=== PATIENT | female | born 1970 | race African-American/Black ===

== ENCOUNTER 2021-08-14 09:08 | Emergency (ER) | payer OTHER ==
[2021-08-14 11:14] LABS: #Eosinphils 0.2 10x3/uL (0.0-0.5); #Monocytes 0.3 10x3/uL (0.0-1.1); #Neutrophils 4.2 10x3/uL (1.5-8.4); %Basophils 0.4 % (0.0-2.0); %Eosinophils 2.2 % (0.0-6.0); %Lymphocytes 31.9 % (18.0-47.0); %Monocytes 4.1 % (0.0-10.0); %Neutrophils 61.1 % (40.0-75.0); Hemoglobin 13.7 g/dL (12.0-15.5); Mean Corpuscular HGB CONC 32.2 g/dL (32.0-36.0); Mean Corpuscular Hemoglobin 27.5 pg (27.0-33.0); Mean Corpuscular Volume 85.2 fl (81.6-98.3); Mean Platelet Volume 9.3 fl (7.4-10.4); Platelet Count 267 10x3/uL (150-450); RBC Distribution Width 13.1 % (11.5-14.5); Red Blood Cell (RBC) Count 4.99 10x6/uL (3.90-5.03); White Blood Cell (WBC) Count 6.8 10x3/uL (3.5-10.5)
[2021-08-14 11:41] LABS: ALT (SGPT) 14 U/L (8-55); AST (SGOT) 12 U/L (5-34); Albumin 4.3 g/dL (3.5-5.0); Alkaline Phosphatase 79 U/L (40-110); Anion Gap 12 mmol/L (10-20); BUN (Urea Nitrogen) 16 mg/dL (9.8-20.1); Bilirubin, Total 0.5 mg/dL (0.2-1.2); Calc. Creatinine Clearance 0 mL/min (70-130); Calcium 9.4 mg/dL (7.8-10.44); Carbon Dioxide 26 mmol/L (22-29); Chloride 106 mmol/L (98-107); Globulin 3.1 g/dL (2.4-3.5); Glucose 130 mg/dL (70-105); Protein, Total 7.4 g/dL (6.0-8.3); Sodium 140 mmol/L (136-145)
== END 2021-08-14 12:42 | disposition home or self-care (01) ==
LOC: CSHERS 09:08
DX: R55 Syncope and collapse (principal); I10 Essential (primary) hypertension
CPT/HCPCS: 36415; 71045; 80053; 84484; 85025; 93005

== ENCOUNTER 2022-05-22 18:54 | Emergency (ER) | payer OTHER | END 2022-05-22 21:08 | disposition home or self-care (01) | LOC: CSHERS 18:54 | DX: M25.562 Pain in left knee (principal); M25.561 Pain in right knee; G89.29 Other chronic pain; I10 Essential (primary) hypertension ==

== ENCOUNTER 2022-07-13 05:43 | Day surgery (SDC) | payer OTHER ==
[2022-07-11 15:04] VITALS: BMI 42.9
[2022-07-13] MEDS ORDERED: PROPOFOL 40 ML ONE (07:38)
[2022-07-13] MEDS ORDERED: Glycopyrrolate 0.2 MG/ML 5 ML SYRINGE ONE (07:44)
[2022-07-13] MEDS ORDERED: Midazolam HCl 2 mg/2 ml Vial ONE (07:45)
== END 2022-07-13 09:00 | disposition home or self-care (01) ==
LOC: CSHSDC 05:43
PROVIDERS: ATTEND Internal Medicine Gastroenterology
DX: D12.5 Benign neoplasm of sigmoid colon (principal); K64.9 Unspecified hemorrhoids; E78.5 Hyperlipidemia, unspecified; F31.9 Bipolar disorder, unspecified; I10 Essential (primary) hypertension; K21.9 Gastro-esophageal reflux disease without esophagitis; E66.9 Obesity, unspecified; Z68.41 Body mass index [BMI] 40.0-44.9, adult
CPT/HCPCS: 88305; A4215; J2250; J2704

== ENCOUNTER 2022-12-03 20:12 | Emergency (ER) | payer OTHER ==
[2022-12-03] MEDS ORDERED: Ketorolac Tromethamine 30 MG/ML VIAL ONE (22:42)
[2022-12-03] MEDS ORDERED: Cyclobenzaprine 10 MG TAB ONE ×2 (22:42→22:44)
== END 2022-12-03 23:01 | disposition home or self-care (01) ==
LOC: CSHERS 20:12
DX: S29.012A Strain of muscle and tendon of back wall of thorax, initial encounter (principal); I10 Essential (primary) hypertension; X50.1XXA Overexertion from prolonged static or awkward postures, initial encounter
CPT/HCPCS: 99283; J1885

== ENCOUNTER 2024-03-09 12:06 | Emergency (ER) | payer OTHER ==
[2024-03-09 13:13] LABS: #Basophils 0.02 10x3/uL (0.0-0.2); #Eosinophils 0.05 10x3/uL (0.0-0.5); #Monocytes 0.42 10x3/uL (0.0-1.1); #Neutrophils 5.67 10x3/uL (1.5-8.4); %Basophils 0.3 % (0.0-2.0); %Eosinophils 0.6 % (0.0-6.0); %Lymphocytes 22.8 % (18.0-47.0); %Monocytes 5.3 % (0.0-10.0); %Neutrophils 70.7 % (40.0-75.0); Hematocrit 44.7 % (34.9-44.5); Mean Corpuscular HGB CONC 33.6 g/dL (32.0-36.0); Mean Corpuscular Hemoglobin 27.6 pg (27.0-33.0); Mean Corpuscular Volume 82.3 fL (81.6-98.3); Mean Platelet Volume 10.6 fL (7.4-10.4); Platelet Count 326 10x3/uL (150-450); RBC Distribution Width 12.6 % (11.5-14.5); Red Blood Cell (RBC) Count 5.43 10x6/uL (3.90-5.03)
[2024-03-09 13:33] LABS: ALT (SGPT) 21 U/L (8-55); AST (SGOT) 10 U/L (5-34); Albumin 3.9 g/dL (3.5-5.0); Alkaline Phosphatase 129 U/L (40-110); Anion Gap 21 mmol/L (10-20); BUN (Urea Nitrogen) 33 mg/dL (9.8-20.1); Bilirubin, Total 0.8 mg/dL (0.2-1.2); Calc. Creatinine Clearance 0 mL/min (70-130); Calcium 10.1 mg/dL (7.8-10.44); Carbon Dioxide 24 mmol/L (22-29); Chloride 87 mmol/L (98-107); Estimated GFR 36; Globulin 4.1 g/dL (2.4-3.5); Potassium 5.2 mmol/L (3.5-5.1); Sodium 127 mmol/L (136-145)
[2024-03-09 13:46] LABS: Critical Call Chemistry ERS.MLU @1346; Glucose 800 mg/dL (70-105)
[2024-03-09] MEDS ORDERED: Insulin Regular, Human 100 UNIT/ML 10 ML VIAL ONE (14:05)
[2024-03-09 14:51] LABS: Bilirubin Neg (Negative); Blood, Urine Negative (Negative); Clarity Clear (Clear); Glucose, Urine (Dipstick) >=1000 mg/dL (Negative); Ketone, Urine 50 mg/dL (Negative); Leukocyte 25 (Negative); Nitrite Negative (Negative); Protein, Urine (Dipstick) Negative (Neg-Trace); Specific Gravity, Urine 1.005 (1.005-1.030); Urobilinogen Normal mg/dL (Less than 2); pH, Urine 6.5 (5.0-9.0)
[2024-03-09 15:05] LABS: Actual Bicarbonate (HCO3v) 25.1 mEq/L (22-28); Analyzer IN Cardio CS ER; Base Excess -0.5 mEq/L (-2 - +2); Calcium, Ionized (venous) 1.05 mmol/L (1.16-1.32); Chloride (VBG) 90 mmol/L (98-106); Critical Notified By: S. CREAMER, RRT; Hematocrit-VBG 48 % (36.0-47.0); Hemoglobin (Hb) 16.3 g/dL (11.7-16.0); Potassium (VBG) 4.59 mmol/L (3.70-5.30); Puncture Site Other Site; RapidComm Collect By cbn; Sodium 131 mmol/L (133-146); pH (venous) 7.369 (7.32-7.43)
[2024-03-09 15:11] LABS: CAUTI Indications for Culture Dysuria,urgency,freq; RBC/HPF None Seen HPF (0-3); Squamous Epithelial 0-3 HPF (0-3); WBC/HPF 0-3 HPF (0-3)
[2024-03-09 15:12] LABS: Bacteria/HPF None Seen HPF (None Seen); Urine Culture Reflex No No
== END 2024-03-09 17:35 | disposition home or self-care (01) ==
LOC: CSHERS 12:06
DX: R73.9 Hyperglycemia, unspecified (principal); E86.0 Dehydration; I10 Essential (primary) hypertension; Z79.899 Other long term (current) drug therapy; Z85.038 Personal history of other malignant neoplasm of large intestine; Z85.43 Personal history of malignant neoplasm of ovary
CPT/HCPCS: 36415; 70491; 80053; 81001; 82010; 82805; 84443; 85025; 96361; 96374; J1815

== ENCOUNTER 2024-03-21 11:35 | Emergency (ER) | payer OTHER ==
[2024-03-21 12:23] LABS: #Basophils 0.02 10x3/uL (0.0-0.2); #Eosinophils 0.06 10x3/uL (0.0-0.5); #Monocytes 0.58 10x3/uL (0.0-1.1); #Neutrophils 4.23 10x3/uL (1.5-8.4); %Basophils 0.3 % (0.0-2.0); %Eosinophils 0.9 % (0.0-6.0); %Lymphocytes 23.8 % (18.0-47.0); %Neutrophils 65.4 % (40.0-75.0); Hemoglobin 12.9 g/dL (12.0-15.5); Mean Corpuscular HGB CONC 34.9 g/dL (32.0-36.0); Mean Corpuscular Hemoglobin 27.7 pg (27.0-33.0); Mean Corpuscular Volume 79.4 fL (81.6-98.3); Mean Platelet Volume 9.7 fL (7.4-10.4); Platelet Count 262 10x3/uL (150-450); RBC Distribution Width 12.4 % (11.5-14.5); Red Blood Cell (RBC) Count 4.66 10x6/uL (3.90-5.03); White Blood Cell (WBC) Count 6.5 10x3/uL (3.5-10.5)
[2024-03-21 12:34] LABS: Anion Gap 17 mmol/L (10-20); BUN (Urea Nitrogen) 20 mg/dL (9.8-20.1); Calc. Creatinine Clearance 0 mL/min (70-130); Calcium 8.8 mg/dL (7.8-10.44); Carbon Dioxide 23 mmol/L (22-29); Chloride 90 mmol/L (98-107); Estimated GFR 49; Potassium 4.1 mmol/L (3.5-5.1); Sodium 126 mmol/L (136-145)
[2024-03-21 12:36] LABS: Critical Call Chemistry AT NUR.DG3 READ BACK RESUTLT @1235; Glucose 565 mg/dL (70-105)
[2024-03-21] MEDS ORDERED: Ibuprofen 200 MG TAB ONE (12:40)
[2024-03-21] MEDS ORDERED: Insulin Regular, Human 100 UNIT/ML 10 ML VIAL ONE (13:20)
[2024-03-21 14:50] LABS: Anion Gap 17 mmol/L (10-20); BUN (Urea Nitrogen) 21 mg/dL (9.8-20.1); Calc. Creatinine Clearance 0 mL/min (70-130); Calcium 8.9 mg/dL (7.8-10.44); Carbon Dioxide 22 mmol/L (22-29); Chloride 91 mmol/L (98-107); Estimated GFR 51; Potassium 4.2 mmol/L (3.5-5.1); Sodium 126 mmol/L (136-145)
[2024-03-21 14:54] LABS: Critical Call Chemistry AT ERS.AM6 READ BACK RESULT @ 1454; Glucose 541 mg/dL (70-105)
[2024-03-21 18:01] LABS: Anion Gap 16 mmol/L (10-20); BUN (Urea Nitrogen) 20 mg/dL (9.8-20.1); Calc. Creatinine Clearance 0 mL/min (70-130); Calcium 8.7 mg/dL (7.8-10.44); Carbon Dioxide 24 mmol/L (22-29); Chloride 96 mmol/L (98-107); Estimated GFR 54; Glucose 370 mg/dL (70-105); Potassium 3.7 mmol/L (3.5-5.1); Sodium 132 mmol/L (136-145)
== END 2024-03-21 18:14 | disposition home or self-care (01) ==
LOC: CSHERS 11:35
DX: B34.9 Viral infection, unspecified (principal); E11.65 Type 2 diabetes mellitus with hyperglycemia; I10 Essential (primary) hypertension; E78.5 Hyperlipidemia, unspecified
CPT/HCPCS: 36415; 36416; 71045; 80048; 85025; 96361; 96374; J1815